=== PATIENT | female | born 1945 | race Caucasian/White ===

== ENCOUNTER 2017-01-05 19:12 | Emergency (ER) | payer MEDICARE ==
[~2017-01-05] VITALS: Ht 175.3 cm; Wt 107.0 kg
[2017-01-05] MEDS ORDERED: METF500T4 PO (19:20)
[2017-01-05] MEDS ORDERED: OS500 PO (19:20)
[2017-01-05] MEDS ORDERED: BACL10TA PO (19:20)
[2017-01-05] MEDS ORDERED: DONE5TAB5 PO (19:20)
[2017-01-05] MEDS ORDERED: ATOR10TA84 PO (19:20)
[2017-01-05] MEDS ORDERED: MAGOX PO (19:20)
[2017-01-05] MEDS ORDERED: VITAD1000 PO (19:20)
[2017-01-05] MEDS ORDERED: DOXY100C PO (19:20)
[2017-01-05] MEDS ORDERED: DULO60CA44 PO (19:20)
[2017-01-05] MEDS ORDERED: FOLI1 PO (19:20)
[2017-01-05] MEDS ORDERED: METO-558 PO (19:20)
[2017-01-05] MEDS ORDERED: LEVE500T53 PO (19:20)
[2017-01-05] MEDS ORDERED: CETI-290 PO (19:20)
[2017-01-05] MEDS ORDERED: METH2.5 PO (19:20)
[2017-01-05] MEDS ORDERED: LEVO150 PO (19:20)
[2017-01-05 19:52] LABS: BASOPHILS # (AUTO) 0.04 K/uL (0.00-0.20); BASOPHILS % (AUTO) 0.3 % (0.0-2.0); EOSINOPHILS # (AUTO) 0.09 K/uL (0.00-0.70); EOSINOPHILS % (AUTO) 0.57 % (1.0-6.0); HEMATOCRIT 44.4 % (36-46); HEMOGLOBIN 13.3 g/dL (12.0-16.0); LYMPHOCYTES # (AUTO) 1.3 K/uL (1.0-4.8); LYMPHOCYTES % (AUTO) 8.5 % (22.0-44.0); MEAN CORPUSCULAR HEMOGLOBIN 26.6 pg (26.0-34.0); MEAN CORPUSCULAR HGB CONC 30.1 G/dL (31.0-37.0); MEAN CORPUSCULAR VOLUME 89 fL (80-100); MONOCYTES # (AUTO) 1.5 K/uL (0.1-1.0); MONOCYTES % (AUTO) 9.3 % (2.0-9.0); NEUTROPHILS # (AUTO) 12.8 K/uL (1.8-7.7); NEUTROPHILS % (AUTO) 81.3 % (40.0-70.0); PLATELET COUNT (AUTO) 328 K/uL (150-450); RED BLOOD CELL COUNT(AUTO) 5.02 MIL/uL (4.00-5.20); RED CELL DISTRIBUTION WIDTH 17.5 % (11.5-14.5)
[2017-01-05 19:58] LABS: ANION GAP 5 mmol/L (8-16); CALCIUM, TOTAL 8.8 mg/dL (8.8-10.5); CARBON DIOXIDE 28 mmol/L (22-29); CHLORIDE 107 mmol/L (98-107); CREATININE 0.93 mg/dL (0.60-1.30); GLOMERULAR FILTR. RATE CALC 59 mL/min (>60); GLUCOSE,RANDOM 118 mg/dL (70-110); POTASSIUM 4.5 mmol/L (3.5-5.1); SODIUM SERUM 140 mmol/L (136-145); UREA NITROGEN, BLOOD 23 mg/dL (7-18)
[2017-01-05 20:08] LABS: ABG TOTAL HEMOGLOBIN 13.6 G/dL (12.0-18.0); SOURCE, BLOOD GAS ARTERIAL
[2017-01-05 20:13] LABS: ALANINE AMINOTRANSFERASE 23 U/L (12-78); ALBUMIN 1.9 g/dL (3.4-5.0); ALKALINE PHOSPHATASE 94 U/L (46-116); ASPARTATE AMINOTRANSFERASE 30 U/L (15-37); BILIRUBIN,TOTAL 0.5 mg/dL (0.1-1.0); CREATINE KINASE, TOTAL 27 U/L (26-192); THYROID STIMULATING HORMONE 0.51 uIU/mL (0.36-3.74); TOTAL PROTEIN, SERUM 7.1 g/dL (6.4-8.2)
[2017-01-05 20:29] LABS: ABG A-A DIFF O2 79.8 mmHg (10-20.0); ABG CARBOXYHEMOGLOBIN 1.3 % (0.0-1.5); ABG HCO3 26.1 mmol/L (22.0-26.0); ABG METHEMOGLOBIN 0.2 % (0.0-1.5); ABG OXYGEN CONTENT 18.8 mL/dL (15.0-23.0); ABG OXYGEN SATURATION 98.9 % (95.0-98.0); ABG OXYHEMOGLOBIN 97.4 % (94.0-100.0); ABG PCO2 40 mmHg (35-45); PO2, ARTERIAL BG 130.1 mmHg (75.0-83.0); TEMPERATURE, FAHRENHEIT, BG 98.5 FAHREN (96.0-98.6)
[2017-01-05 20:31] LABS: O2 DEVICE,BLOOD GAS NC (ROOM AIR); SITE, BLOOD GAS RT RADIAL
[2017-01-05 20:37] LABS: PLATELET MORPHOLOGY COMMENT LARGE PLTS PRESENT
[2017-01-05] MEDS ORDERED: LORazepam 2 MG/ML VIAL IVP ONE ×2 (21:00→21:15)
[2017-01-05] MEDS ORDERED: LevETIRAcetam 1,000 MG in DEXTROSE 5%-WATER 100 ML IV ONE (21:15)
[2017-01-05] MEDS ORDERED: METOPROLOL TARTRATE 5 MG/5 ML VIAL IVP ONE (21:45)
[2017-01-05] MEDS ORDERED: SODIUM CHLORIDE 0.9% 1,000 ML IV ONE (22:45)
[2017-01-05 23:00] LABS: APPEARANCE,URINE CLOUDY (CLEAR); GLUCOSE, URINE (UA) NEGATIVE (NEGATIVE); KETONES,URINE NEGATIVE (NEGATIVE); LEUKOCYTE ESTERASE ,URINE NEGATIVE (NEGATIVE); NITRATE,URINE NEGATIVE (NEGATIVE); OCCULT BLOOD,URINE NEGATIVE (NEGATIVE); PROTEIN,URINE POS 1+ (NEGATIVE); UROBILINOGEN,URINE 0.2 mg/dL (<=1.0)
[2017-01-05 23:02] LABS: BILIRUBIN,URINE PRELIM. POSITIVE (NEGATIVE)
[2017-01-05 23:24] VITALS: BP 132/73
[2017-01-05 23:38] LABS: GLUCOSE,POINT OF CARE 123 MG/DL (70-110)
== END 2017-01-06 00:13 | disposition short-term general hospital (02) ==
LOC: EMS 19:15
DX: G40.901 Epilepsy, unspecified, not intractable, with status epilepticus (principal); R41.82 Altered mental status, unspecified; I10 Essential (primary) hypertension; E66.9 Obesity, unspecified; Z86.73 Personal history of transient ischemic attack (TIA), and cerebral infarction without residual deficits; Z79.01 Long term (current) use of anticoagulants; I48.91 Unspecified atrial fibrillation; Z88.8 Allergy status to other drugs, medicaments and biological substances; Z91.010 Allergy to peanuts
CPT/HCPCS: 36415; 70450; 71010; 80053; 81003; 82550; 82805; 82962; 83605; 84443; 84484; 85025; 87040; 93005; 96361; 96365; 96375; 96376; 99291; J0712; J2060; J3490; J7060